=== PATIENT | female | born 1960 | race Caucasian/White ===

== ENCOUNTER 2021-01-13 19:19 | Emergency (ER) | payer MEDICAID, OTHER ==
[~2021-01-13] VITALS: Ht 154.9 cm; Wt 51.5 kg
[2021-01-13 19:21] VITALS: BP 117/90
== END 2021-01-13 21:16 | disposition home or self-care (01) ==
LOC: ED 20:45
DX: S39.012A Strain of muscle, fascia and tendon of lower back, initial encounter (principal); M51.36 Other intervertebral disc degeneration, lumbar region; W01.0XXA Fall on same level from slipping, tripping and stumbling without subsequent striking against object, initial encounter; Y93.89 Activity, other specified; Y92.89 Other specified places as the place of occurrence of the external cause; Y99.8 Other external cause status
CPT/HCPCS: 72110; 72220; 82962; 99284

== ENCOUNTER 2021-01-14 01:33 | Emergency (ER) | payer MEDICAID ==
[~2021-01-14] VITALS: Ht 157.5 cm; Wt 50.5 kg
--- NOTE | 2021-01-14 01:40 | NUR ---
BIB [facility] PT STATES WOKE UP AROUND MIDNIGHT WITH A EXTREME HOWARD. PT STATES HAS MIGRAINES THIS IS WAY WORSE. ACHING EYES AND 10/10 PT TOOK TORDAL 25MG AND DIDN'T ALLEVIATE PAIN.
[2021-01-14] MEDS ORDERED: PROCHLORPERAZINE 5 MG/ML, 2ML ONE (02:18)
[2021-01-14] MEDS ORDERED: DIPHENHYDRAMINE 50 MG/ML, 1ML ONE (02:19)
[2021-01-14] MEDS ORDERED: KETOROLAC 30 MG/1 ML ONE (02:19)
[2021-01-14] MEDS ORDERED: DIPHENHYDRAMINE 50 MG/ML, 1ML IVPush ONE (02:30)
[2021-01-14] MEDS ORDERED: PROCHLORPERAZINE 5 MG/ML, 2ML IVPush ONE (02:30)
[2021-01-14] MEDS ORDERED: KETOROLAC 30 MG/1 ML IVPush ONE (02:30)
--- NOTE | 2021-01-14 02:55 | NUR ---
PT REFUSED TORDAL, TOOK PRIOR TO ARRIVAL AND DIDN'T HELP MIGRAINE. PT REFUZED COMPAZINE BECAUSE STATES MAKES HER "BOUNCE OFF THE GUERRA" PROVIDER NOTIFIED AND MEDICATION ADJUSTMENTS MADE.
[2021-01-14] MEDS ORDERED: BUTALB/APAP/CAFFEINE 50MG/325MG/40MG PO ONE (03:00)
[2021-01-14] MEDS ORDERED: ONDANSETRON 2MG/ML, 2ML IVPush ONE (03:00)
[2021-01-14] MEDS ORDERED: ONDANSETRON 2MG/ML, 2ML ONE (03:02)
--- NOTE | 2021-01-14 03:35 | NUR ---
PT REQUESTING THE USE OF THE RESTROOM. PT DISCONNECTED FROM VITALS MACHINES AND WALKED TO RESTROOM WITH STEADY GAIT AND RETURNED TO ROOM WITH NO ISSUES. PT PUT BACK ON ALL VITAL MACHINES.
[2021-01-14 03:56] VITALS: BP 137/77
--- NOTE | 2021-01-14 04:52 | NUR ---
Patient given discharge instructions and they have confirmed that they understand the instructions. Patient ambulatory with steady gait. No questions at time of discharge.
== END 2021-01-14 04:54 | disposition home or self-care (01) ==
LOC: ED 02:40
DX: R51.9 Headache, unspecified (principal); Z76.0 Encounter for issue of repeat prescription; M54.2 Cervicalgia; R11.0 Nausea; J44.9 Chronic obstructive pulmonary disease, unspecified
CPT/HCPCS: 96374; 96375; 99284; J1200; J2405

== ENCOUNTER 2021-02-15 22:05 | Emergency (ER) | payer MEDICAID ==
[~2021-02-15] VITALS: Ht 154.9 cm; Wt 51.0 kg
[2021-02-15 22:29] VITALS: BP 127/92
--- NOTE | 2021-02-16 00:06 | NUR ---
PATIENT CALLED TO SAY THAT SHE LEFT THE ER R/T WAIT TIMES
== END 2021-02-16 00:08 | disposition left against medical advice (07) ==
LOC: ED 22:30
DX: I10 Essential (primary) hypertension (principal); Z53.21 Procedure and treatment not carried out due to patient leaving prior to being seen by health care provider

== ENCOUNTER 2021-04-11 02:59 | Emergency (ER) | payer MEDICAID ==
[~2021-04-11] VITALS: Ht 157.5 cm; Wt 114.0 kg
--- NOTE | 2021-04-11 03:22 | NUR ---
[facility] REPOR[facility] PATIENT CALLED 911 FOR A MIGRANE LASTING 2-3 HOURS AND SHE HAS BLACKED OUT DURING THAT TIME. EMS AND PATIENT REPORT SHE HAS BEEN UNABLE TO FILL HER LISINOPRIL FOR THE PAST 3 WEEKS AND HAS AN INCREASE SOCIAL STRESS AT HOME.
[2021-04-11] MEDS ORDERED: PROCHLORPERAZINE 5 MG/ML, 2ML ONE (04:39)
[2021-04-11] MEDS ORDERED: KETOROLAC 30 MG/1 ML ONE (04:39)
[2021-04-11] MEDS ORDERED: PROMETHAZINE 25 MG/ML, 1ML ONE (04:44)
[2021-04-11 04:54] VITALS: BP 165/87
[2021-04-11 04:56] LABS: BASOPHILS % (AUTO) 1 % (0-1); EOSINOPHILS % (AUTO) 4 % (1-7); LYMPHOCYTES % (AUTO) 39 % (22-44); MEAN CORPUSCULAR HEMOGLOBIN 32.9 pg (27.0-34.8); MEAN CORPUSCULAR HGB CONC 33.4 g/dL (32.4-35.8); MEAN PLATELET VOLUME 7.2 fL (7.4-10.4); MONOCYTES % (AUTO) 8 % (2-9); NEUTROPHILS % (AUTO) 49 % (42-75); PLATELET COUNT 312 x10^3/uL (130-400); RED BLOOD COUNT 4.25 x10^6/uL (3.82-5.3); RED CELL DISTRIBUTION WIDTH 13.1 % (9.6-15.2)
[2021-04-11] MEDS ORDERED: PROMETHAZINE 25 MG/ML, 1ML IM ONE (05:00)
[2021-04-11] MEDS ORDERED: KETOROLAC 30 MG/1 ML IVPush ONE (05:00)
[2021-04-11] MEDS ORDERED: PROCHLORPERAZINE 5 MG/ML, 2ML IM ONE (05:00)
[2021-04-11 05:06] LABS: ALBUMIN 3.4 g/dL (3.4-5.0); ANION GAP 6 mmol/L (5-15); CALCIUM 8.5 mg/dL (8.5-10.1); CHLORIDE 109 mmol/L (98-107); CREATININE 0.81 mg/dL (0.55-1.02)
[2021-04-11] MEDS ORDERED: BACITRACIN ZINC OINT 500U/GM, 0.9 GM ONE (05:37)
--- NOTE | 2021-04-11 05:49 | NUR ---
Patient given discharge instructions and they have confirmed that they understand the instructions. Patient ambulatory with steady gait. NAD, all questions answered appropriately, denies additional needs at this time. No personal belongings left in room after discharge.
[2021-04-11] MEDS ORDERED: BACITRACIN ZINC OINT 500U/GM, 0.9 GM TP ONE (09:00)
== END 2021-04-11 05:58 | disposition home or self-care (01) ==
LOC: ED 05:35
DX: R55 Syncope and collapse (principal); G43.809 Other migraine, not intractable, without status migrainosus; R21 Rash and other nonspecific skin eruption; Z20.822 Contact with and (suspected) exposure to COVID-19; I10 Essential (primary) hypertension; J44.9 Chronic obstructive pulmonary disease, unspecified; F17.210 Nicotine dependence, cigarettes, uncomplicated
CPT/HCPCS: 36415; 80048; 82040; 85025; 93005; 96372; 96374; 99284; 99406; J1885; J2550; U0003; U0005